=== PATIENT | female | born 1990 | race Caucasian/White ===

== ENCOUNTER 2017-01-22 07:43 | Inpatient (IN) | payer BC ==
[2017-01-22] MEDS ORDERED: Sodium Chloride 0.9% 10 ML Syringe FLUSH PRN (08:16)
[2017-01-22] MEDS ORDERED: ceFAZolin 1 GM Vial IV ONE (08:16)
[2017-01-22] MEDS ORDERED: Misoprostol 200 MCG Tab PO PRN (08:16)
[2017-01-22] MEDS ORDERED: Methylergonovine 0.2 MG/1 ML Amp IM PRN (08:16)
[2017-01-22] MEDS ORDERED: Nalbuphine 10 MG/1 ML Vial IVPUSH PRN (08:16)
[2017-01-22] MEDS ORDERED: Terbutaline 1 MG/ML SDV SUBCUT PRN (08:16)
[2017-01-22] MEDS ORDERED: Water For Irrigation,Sterile 1,000 ML Container IRR PRN (08:16)
[2017-01-22] MEDS ORDERED: Lidocaine 1% 50 ML MDV INJECT PRN (08:16)
[2017-01-22] MEDS ORDERED: Sodium Chloride 0.9% 2.5 ML Syringe FLUSH PRN (08:16)
[2017-01-22] MEDS ORDERED: Carboprost Tromethamine 250 MCG/1 ML Amp IM PRN (08:16)
[2017-01-22] MEDS ORDERED: Oxytocin/Lactated Ringers 30 UNIT/500 ML BAG IV SCH ×2 (08:30)
[2017-01-22] MEDS ORDERED: Misoprostol 25 MCG (1/4 of 100 MCG) Tab VAG SCH (08:30)
[2017-01-22] MEDS ORDERED: ceFAZolin 2 GM in Premix Bag 1 BAG IV ONE (08:45)
[2017-01-22] MEDS: Lactated Ringers 1,000 ML IV SCH (09:06)
[2017-01-22] MEDS: Misoprostol 25 MCG (1/4 of 100 MCG) Tab VAG PRN ×3 (13:55→22:34)
[2017-01-22] MEDS ORDERED: ceFAZolin 1 GM Vial IV SCH (16:30)
[2017-01-22] MEDS: ceFAZolin 1 GM in Premix Bag 1 BAG IV SCH (17:15)
[2017-01-22] MEDS ORDERED: hydrOXYzine Pamoate 25 MG Cap PO ONE (21:35)
[2017-01-23] MEDS ORDERED: cefOXitin 0 ML ONE (01:24)
[2017-01-23] MEDS: ceFAZolin 1 GM in Premix Bag 1 BAG IV SCH ×3 (01:32→17:25)
[2017-01-23] MEDS: Butorphanol 1 MG/ML SDV IVPUSH PRN ×3 (02:13→08:20)
[2017-01-23] MEDS: Lactated Ringers 1,000 ML IV SCH ×4 (09:36→19:50)
[2017-01-23] MEDS ORDERED: Ropivacaine 0.2% 2 MG/ML 20 ML SDV ONE (10:23)
--- NOTE | 2017-01-23 10:59 | PCM.PREANE ---
Preanesthetic Assessment - Anesthesia/Transfusion/Family Hx Anesthesia History: Prior Anesthesia Without Reaction Transfusion History: No Prior Transfusion(s) - Review of Systems Other: Reports: None - Physical Assessment Height: 5 ft 4.25 in Weight: 106.708 kg ASA Class: 2 Mental Status: Alert & Oriented x3 Airway Class: Mallampati = 1 Dentition: Reports: Normal Dentition Thyro-Mental Finger Breadths: 3 Mouth Opening Finger Breadths: 3 ROM/Head Extension: Full - Lab Values: Laboratory Last Values WBC 8.03 K/uL (4.0-11.0) 01/22/17 08:45 RBC 3.79 M/uL (4.30-5.90) L 01/22/17 08:45 Hgb 11.3 g/dL (12.0-16.0) L 01/22/17 08:45 Hct 33.5 % (36.0-46.0) L 01/22/17 08:45 MCV 88.4 fL (80.0-98.0) 01/22/17 08:45 MCH 29.8 pg (27.0-32.0) 01/22/17 08:45 MCHC 33.7 g/dL (31.0-37.0) 01/22/17 08:45 RDW Std Deviation 43.8 fl (28.0-62.0) 01/22/17 08:45 RDW Coeff of Steve 14 % (11.0-15.0) 01/22/17 08:45 Plt Count 182 K/uL (150-400) 01/22/17 08:45 MPV 10.40 fL (7.40-12.00) 01/22/17 08:45 Nucleated RBC % 0.0 /100WBC 01/22/17 08:45 Nucleated RBCs # 0 K/uL 01/22/17 08:45 Blood Type A POSITIVE 01/22/17 09:30 Antibody Screen NEGATIVE 01/22/17 09:30 - Allergies Allergies/Adverse Reactions: Allergies Allergy/AdvReac Type Severity Reaction Status Date / Time Penicillins Allergy Rash Verified 01/22/17 08:15 - Blood Blood Available: Yes Product(s) Available: PRBC - Acknowledgements Anesthesia Type Planned: Epidural Pt an Appropriate Candidate for the Planned Anesthesia: Yes Alternatives and Risks of Anesthesia Discussed w Pt/Guardian: Yes Pt/Guardian Understands and Agrees with Anesthesia Plan: Yes PreAnesthesia Questionnaire Gastrointestinal History: Reports: Other (See Below) Other Gastrointestinal History: 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: - 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 (IN HOUSE) MEDS Current Meds: Current Medications Butorphanol Tartrate (Stadol) 1 mg IVPUSH Q1H PRN PRN Reason: Pain Last Admin: 01/23/17 08:20 Dose: 1 mg Carboprost Tromethamine (Hemabate Ds) 250 mcg IM ASDIRECTED PRN PRN Reason: Post Hemorrhage Lactated Ringer's (Ringers, Lactated) 1,000 mls @ 150 mls/hr IV ASDIRECTED PAOLO Last Admin: 01/23/17 10:43 Dose: 999 mls/hr Oxytocin/Lactated Ringer's (Pitocin In Lr 30 Units/500 Ml) 30 unit in 500 mls @ 2 mls/hr IV TITRATE PAOLO; 2 MUNITS/MIN PRN Reason: Protocol Cefazolin Sodium/Dextrose 1 gm (/ Premix) 50 mls @ 100 mls/hr IV Q8H PAOLO Last Admin: 01/23/17 09:27 Dose: 100 mls/hr Lidocaine HCl (Xylocaine 1%) 50 ml INJECT .ONCE PRN PRN Reason: Laceration repair Methylergonovine Maleate (Methergine) 0.2 mg IM ASDIRECTED PRN PRN Reason: Post Hemorrhage Misoprostol (Cytotec) 200 mcg PO .ONCE PRN PRN Reason: Post Hemorrhage Misoprostol (Cytotec) 25 mcg VAG .ONCE PAOLO Last Admin: 01/22/17 09:06 Dose: 25 mcg Misoprostol (Cytotec) 25 mcg VAG Q4H PRN PRN Reason: Cervical Ripening Stop: 01/23/17 12:17 Last Admin: 01/22/17 22:34 Dose: 25 mcg Sodium Chloride (Saline Flush) 10 ml FLUSH ASDIRECTED PRN PRN Reason: Keep Vein Open Sodium Chloride (Saline Flush) 2.5 ml FLUSH ASDIRECTED PRN PRN Reason: Keep Vein Open Sterile Water (Sterile Water For Irrigation) 1,000 ml IRR ASDIRECTED PRN PRN Reason: delivery Terbutaline Sulfate (Brethine) 0.25 mg SUBCUT ASDIRECTED PRN PRN Reason: Tacysystole Discontinued Medications Cefazolin Sodium (Ancef) 2 gm IV ASDIRECTED ONE Stop: 01/22/17 08:17 Cefazolin Sodium (Ancef) 1 gm IV Q8H PAOLO Hydroxyzine Pamoate (Vistaril) 50 mg PO ONETIME ONE Stop: 01/22/17 21:36 Oxytocin/Lactated Ringer's (Pitocin In Lr 30 Units/500 Ml) 30 unit in 500 mls @ 999 mls/hr IV TITRATE PAOLO; 999 MUNITS/MIN PRN Reason: Protocol Stop: 01/22/17 09:01 Cefazolin Sodium/Dextrose 2 gm (/ Premix) 50 mls @ 100 mls/hr IV ASDIRECTED ONE Stop: 01/22/17 09:14 Last Admin: 01/22/17 09:06 Dose: 100 mls/hr Cefazolin Sodium/Dextrose (Ancef) Confirm Administered Dose 50 mls @ as directed .ROUTE .STK-MED ONE Stop: 01/23/17 01:21 Cefoxitin Sodium (Mefoxin In Dextrose,Iso-Osm 1 Gm/50 Ml) Confirm Administered Dose 50 mls @ as directed .ROUTE .STK-MED ONE Stop: 01/23/17 01:25 Cefazolin Sodium/Dextrose (Ancef) Confirm Administered Dose 50 mls @ as directed .ROUTE .STK-MED ONE Stop: 01/23/17 01:29 Ropivacaine/Fentanyl/NS (Fentanyl 2 Mcg-Ropiv 0.2%-Ns) Confirm Administered Dose 100 mls @ as directed .ROUTE .STK-MED ONE Stop: 01/23/17 10:24 Nalbuphine HCl (Nubain) 10 mg IVPUSH Q1H PRN PRN Reason: Pain (severe 7-10) Stop: 01/22/17 10:17 Ropivacaine (Naropin 0.2%) Confirm Administered Dose 20 ml .ROUTE .STK-MED ONE Stop: 01/23/17 10:24
[2017-01-24] MEDS: ceFAZolin 1 GM in Premix Bag 1 BAG IV SCH (01:15)
[2017-01-24] MEDS ORDERED: Oxytocin/Lactated Ringers 30 UNIT/500 ML BAG IV SCH (02:15)
[2017-01-24] MEDS ORDERED: oxyCODONE 5 MG Tab PO PRN (02:28)
[2017-01-24] MEDS ORDERED: Bisacodyl 10 MG Supp RECTAL PRN (02:28)
[2017-01-24] MEDS ORDERED: Acetaminophen 500 MG Tab PO PRN (02:28)
[2017-01-24] MEDS ORDERED: Lanolin 100% Cream 7 GM Tube TOP PRN (02:28)
[2017-01-24] MEDS ORDERED: Docusate Sodium 100 MG Cap PO PRN (02:28)
[2017-01-24] MEDS ORDERED: Witch Hazel Medicated Pads 40/Jar TOP PRN (02:28)
[2017-01-24] MEDS ORDERED: Benzocaine/Menthol 20%-0.5% Spray 78 GM Cannister TOP PRN (02:28)
[2017-01-24] MEDS: Ibuprofen 800 MG Tab PO PRN ×3 (03:27→23:20)
--- NOTE | 2017-01-24 04:02 | OR ---
SURGEON: Nakia Noyola DATE OF PROCEDURE: 01/24/2017 PRE-DELIVERY HISTORY: This is a 27-year-old G1, P0, presented to Labor and Delivery for elective induction of labor at 39 weeks and 6 days. The patient was noted to be GBS positive and allergic to penicillin for which the patient gets a rash. On admission, heart tracing was significant for category 1 status and reactive. The patient had a very occasional contraction. Cervix was very unfavorable and noted to be 1, thick, and high posterior. The patient was given several doses of vaginal misoprostol. The patient was noted to be arin regularly with vaginal misoprostol and her last dose was held. The patient eventually underwent spontaneous rupture of membranes and was examined by me and found to be 2 cm dilated, and a [employer] catheter balloon was used in order to mechanically dilate the cervix with contractions being regular and uncomfortable for the patient. The patient eventually did receive an epidural. Of note, amniotic fluid was noted to be clear. Once she did receive her epidural, the patient was examined by nursing staff and traction was placed on the Cook balloon and balloon was dislodged. The patient was examined by nursing staff and found what was felt to be 6-7 cm dilated. The patient was arin every 5-6 minutes. The patient was started on IV Pitocin. The patient slowly progressed through labor and eventually reached complete status and the patient eventually started maternal expulsive efforts after feeling significant rectal pressure. After a little over an hour's time, the patient went on to deliver a viable female . PREOPERATIVE DIAGNOSES: 1. Intrauterine uterine at 40 weeks and 1 day. 2. GBS positive with multiple doses of IV Ancef. 3. Elective induction of labor. POSTOPERATIVE DIAGNOSES: 1. Intrauterine uterine at 40 weeks and 1 day. 2. GBS positive with multiple doses of IV Ancef. 3. Elective induction of labor. 4. Delivered status. 5. First-degree vaginal laceration. 6. A small left vaginal laceration. PROCEDURE PERFORMED: 1. Spontaneous-assisted vaginal delivery. 2. Repair of first-degree vaginal laceration. 3. Repair of small left vaginal laceration. ANESTHESIA: Epidural and local. ESTIMATED BLOOD LOSS: 300 mL. FINDINGS: Viable female in vertex presentation with scores of 8 and 9 at one and five minutes respectively. Weight of 3730 g. Normal intact placenta with 3 - vessel cord. Small first-degree vaginal laceration. Small left vaginal laceration with extension into the left labia minora. COMPLICATIONS: None known. DISPOSITION: Mom and tolerated the procedure well. DESCRIPTION OF PROCEDURE: This female under epidural anesthesia delivered a viable female infant, with scores of 8 and 9 at one and five minutes respectively and weight of 3730 g. Delivery was via spontaneous-assisted vaginal delivery with infant in vertex presentation. Upon delivery of infant vertex, the neck was checked. There was no nuchal to be reduced and with gentle downward traction, the anterior shoulder area did not deliver spontaneously. So, the shoulders were rotated to 180 degrees and the anterior shoulder was delivered followed by the body. The was bulb suctioned at delivery and eventually placed on mom's abdomen at maternal request. Cord was eventually clamped and cut after completion of pulsation. Cord blood was then collected and sent for analysis. After delivery of the , IV Pitocin was given as an uterotonic to prevent excessive maternal blood loss and help expel the placenta and active management of the third stage of labor. With signs of placental separation, the patient underwent fundal massage and traction on the umbilical cord and a normal intact placenta with 3-vessel cord was delivered. After delivery of the and placenta, the vagina, perineum, and rectum were explored and the patient had a first-degree vaginal laceration and also a small left vaginal laceration extending to the left labia minora, which . Perineum was tested and was noted that the patient did have full sensation, so 1% lidocaine without epinephrine was used to infiltrate the vaginal tissue and also the vaginal sidewall tissue. The first-degree vaginal laceration was reapproximated with 3-0 Vicryl suture in a [id number] fashion. The left vaginal laceration with extension to the labia minora was reapproximated with 3- 0 Vicryl suture. The vagina was actually reapproximated with 3-0 Vicryl suture in a figure-of-8 fashion. Afterwards, the lower uterine segment and vagina were cleared of all clots and debris. The patient was cleansed. Pads were changed and the bed was returned to functioning status. Sponge, lap, needle, and instrument counts were correct. Mom and tolerated the procedure well. There were no known complications. NEWTYOL / MODL /[id number] MTDD
--- NOTE | 2017-01-24 09:18 | PCM48HPAN ---
Post Anesthesia Note - EVALUATION WITHIN 48HRS OF ANESTHETIC Vital Signs in Normal Range: Yes Patient Participated in Evaluation: Yes Respiratory Function Stable: Yes Airway Patent: Yes Cardiovascular Function Stable: Yes Hydration Status Stable: Yes Pain Control Satisfactory: Yes Nausea and Vomiting Control Satisfactory: Yes Mental Status Recovered: Yes
[2017-01-25] MEDS: Ibuprofen 800 MG Tab PO PRN (09:10)
--- NOTE | 2017-01-25 09:16 | PCM.PNPP ---
- General Info Date of Service: 01/25/17 Functional Status: Reports: Pain Controlled, Tolerating Diet, Ambulating, Urinating - Review of Systems General: Reports: No Symptoms HEENT: Reports: No Symptoms Pulmonary: Reports: No Symptoms Cardiovascular: Reports: No Symptoms Gastrointestinal: Reports: No Symptoms Genitourinary: Reports: No Symptoms Musculoskeletal: Reports: No Symptoms Skin: Reports: No Symptoms Neurological: Reports: No Symptoms Psychiatric: Reports: No Symptoms - General Info Date of Service: 01/25/17 - Patient Data Vital Signs - Most Recent: Last Vital Signs Temp 36.6 C 01/24/17 19:39 Pulse 54 L 01/24/17 19:39 Resp 16 01/24/17 19:39 BP 135/73 01/24/17 19:39 Pulse Ox 97 01/24/17 19:39 Weight - Most Recent: 106.708 kg Lab Results - Last 24 Hours: Laboratory Results - last 24 hr 01/25/17 Range/Units 05:22 Hgb 10.3 L (12.0-16.0) g/dL Hct 30.9 L (36.0-46.0) % Med Orders - Current: Current Medications Acetaminophen (Tylenol Extra Strength) 500 mg PO Q4H PRN PRN Reason: Pain Benzocaine/Menthol (Dermoplast Pain Relief 20%-0.5% [place]) 78 gm TOP ASDIRECTED PRN PRN Reason: Perineal Comfort Measure Last Admin: 01/24/17 03:29 Dose: 1 spray Bisacodyl (Dulcolax) 10 mg RECTAL .ONCE PRN PRN Reason: Constipation Butorphanol Tartrate (Stadol) 1 mg IVPUSH Q1H PRN PRN Reason: Pain Last Admin: 01/23/17 08:20 Dose: 1 mg Carboprost Tromethamine (Hemabate Ds) 250 mcg IM ASDIRECTED PRN PRN Reason: Post Hemorrhage Docusate Sodium (Colace) 100 mg PO BID PRN PRN Reason: Constipation Last Admin: 01/24/17 10:11 Dose: 100 mg Emollient Ointment (Lansinoh Hpa) 0 gm TOP ASDIRECTED PRN PRN Reason: Sore Nipples Lactated Ringer's (Ringers, Lactated) 1,000 mls @ 150 mls/hr IV ASDIRECTED PAOLO Last Admin: 01/23/17 19:50 Dose: 150 mls/hr Oxytocin/Lactated Ringer's (Pitocin In Lr 30 Units/500 Ml) 30 unit in 500 mls @ 2 mls/hr IV TITRATE PAOLO; 2 MUNITS/MIN PRN Reason: Protocol Last Titration: 01/24/17 01:40 Dose: 500 munits/min, 500 mls/hr Cefazolin Sodium/Dextrose 1 gm (/ Premix) 50 mls @ 100 mls/hr IV Q8H PAOLO Last Admin: 01/24/17 01:15 Dose: 100 mls/hr Oxytocin/Lactated Ringer's (Pitocin In Lr 30 Units/500 Ml) 30 unit in 500 mls @ 250 mls/hr IV ASDIRECTED PAOLO PRN Reason: 250 MUNITS/MIN Ibuprofen (Motrin) 800 mg PO Q6H PRN PRN Reason: Pain Last Admin: 01/25/17 09:10 Dose: 800 mg Lidocaine HCl (Xylocaine 1%) 50 ml INJECT .ONCE PRN PRN Reason: Laceration repair Last Admin: 01/24/17 01:50 Dose: 50 ml Methylergonovine Maleate (Methergine) 0.2 mg IM ASDIRECTED PRN PRN Reason: Post Hemorrhage Misoprostol (Cytotec) 200 mcg PO .ONCE PRN PRN Reason: Post Hemorrhage Misoprostol (Cytotec) 25 mcg VAG .ONCE PAOLO Last Admin: 01/22/17 09:06 Dose: 25 mcg Oxycodone HCl (Oxycodone) 5 mg PO Q2H PRN PRN Reason: Pain Last Admin: 01/25/17 09:11 Dose: 5 mg Sodium Chloride (Saline Flush) 10 ml FLUSH ASDIRECTED PRN PRN Reason: Keep Vein Open Sodium Chloride (Saline Flush) 2.5 ml FLUSH ASDIRECTED PRN PRN Reason: Keep Vein Open Sterile Water (Sterile Water For Irrigation) 1,000 ml IRR ASDIRECTED PRN PRN Reason: delivery Last Admin: 01/24/17 02:00 Dose: 1,000 ml Terbutaline Sulfate (Brethine) 0.25 mg SUBCUT ASDIRECTED PRN PRN Reason: Tacysystole [place]is (Tucks) 1 pad TOP ASDIRECTED PRN PRN Reason: comfort care Last Admin: 01/24/17 03:30 Dose: 1 applic Discontinued Medications Cefazolin Sodium (Ancef) 2 gm IV ASDIRECTED ONE Stop: 01/22/17 08:17 Cefazolin Sodium (Ancef) 1 gm IV Q8H PAOLO Hydroxyzine Pamoate (Vistaril) 50 mg PO ONETIME ONE Stop: 01/22/17 21:36 Oxytocin/Lactated Ringer's (Pitocin In Lr 30 Units/500 Ml) 30 unit in 500 mls @ 999 mls/hr IV TITRATE PAOLO; 999 MUNITS/MIN PRN Reason: Protocol Stop: 01/22/17 09:01 Cefazolin Sodium/Dextrose 2 gm (/ Premix) 50 mls @ 100 mls/hr IV ASDIRECTED ONE Stop: 01/22/17 09:14 Last Admin: 01/22/17 09:06 Dose: 100 mls/hr Cefazolin Sodium/Dextrose (Ancef) Confirm Administered Dose 50 mls @ as directed .ROUTE .ST-MED ONE Stop: 01/23/17 01:21 Cefoxitin Sodium (Mefoxin In Dextrose,Iso-Osm 1 Gm/50 Ml) Confirm Administered Dose 50 mls @ as directed .ROUTE .STK-MED ONE Stop: 01/23/17 01:25 Cefazolin Sodium/Dextrose (Ancef) Confirm Administered Dose 50 mls @ as directed .ROUTE .STK-MED ONE Stop: 01/23/17 01:29 Ropivacaine/Fentanyl/NS (Fentanyl 2 Mcg-Ropiv 0.2%-Ns) Confirm Administered Dose 100 mls @ as directed .ROUTE .STK-MED ONE Stop: 01/23/17 10:24 Ropivacaine/Fentanyl/NS (Fentanyl 2 Mcg-Ropiv 0.2%-Ns) Confirm Administered Dose 100 mls @ as directed .ROUTE .STK-MED ONE Stop: 01/23/17 18:41 Misoprostol (Cytotec) 25 mcg VAG Q4H PRN PRN Reason: Cervical Ripening Stop: 01/23/17 12:17 Last Admin: 01/22/17 22:34 Dose: 25 mcg Nalbuphine HCl (Nubain) 10 mg IVPUSH Q1H PRN PRN Reason: Pain (severe 7-10) Stop: 01/22/17 10:17 Ropivacaine (Naropin 0.2%) Confirm Administered Dose 20 ml .ROUTE .[employer]-MED ONE Stop: 01/23/17 10:24 - Infant Interaction Infant Disposition, : [place] in Room with Family Infant Interaction: Holding Infant Feeding: Breastfed ; Nursed Well Support Person: Significant Other - Recovery Exam Fundal Tone: Firm Fundal Level: At Umbilicus Fundal Placement: Midline Lochia Amount: Small Lochia Color: Rubra/Red Perineum Description: Intact, Minimal Bruising/Swelling Episiotomy/Laceration: Approximated Bladder Status: Voiding Urinary Elimination: Voided - Exam General: Alert, Oriented Neck: Supple Lungs: Clear to Auscultation, Normal Respiratory Effort Cardiovascular: Regular Rate, Regular Rhythm GI/Abdominal Exam: Normal Bowel Sounds, Soft, Non-Tender Extremities: Normal Inspection Skin: Warm, Dry, Intact Neurological: No New Focal Deficit Psy/Mental Status: Alert, Normal Affect, Normal Mood - Problem List & Annotations (1) Vaginal delivery SNOMED Code(s): 814461322 Code(s): O80 - ENCOUNTER FOR FULL-TERM UNCOMPLICATED DELIVERY Status: Acute Current Visit: Yes - Problem List Review Problem List Initiated/Reviewed/Updated: Yes - My Orders Last 24 Hours: My Active Orders 01/25/17 10:00 Ready for Discharge [RC] PER UNIT ROUTINE - Assessment Assessment:: PPD#1 S/p SAVD Doing well Desires discharge home today - Plan Plan:: Discharge home today with follow up in 6wks Pelvic rest for 6wks Bleeding precautions given Infection precautions given Thrombotic precautions given blues/precautions given
[2017-01-25 10:53] VITALS: BP 130/77
== END 2017-01-25 13:39 | disposition home or self-care (01) | DRG 560 ==
LOC: MW.OBCHECK 07:43 → MW.OB 07:44 → OBSVTOIN 01-24 01:35 → MW.OB 01-24 08:40
PROVIDERS: ADMIT Obstetrics & Gynecology; ATTEND Obstetrics & Gynecology
PROC: 10E0XZZ Delivery of Products of Conception, External Approach (ICD-10-PCS; principal; 2017-01-24)
PROC: 0HQ9XZZ Repair Perineum Skin, External Approach (ICD-10-PCS; 2017-01-24)
PROC: 0U7C7ZZ Dilation of Cervix, Via Natural or Artificial Opening (ICD-10-PCS; 2017-01-24)
DX: O70.0 First degree perineal laceration during delivery (principal); O99.824 Streptococcus B carrier state complicating childbirth; Z3A.40 40 weeks gestation of pregnancy; Z37.0 Single live birth; Z88.0 Allergy status to penicillin
CPT/HCPCS: 36415; 59025; 85014; 85018; 85027; 86850; 86900; 86901; A9270-GY; J0595; J0690; J7120

== ENCOUNTER 2019-04-26 00:05 | Inpatient (IN) | payer OTHER ==
[2019-04-26] MEDS ORDERED: Misoprostol 25 MCG (1/4 of 100 MCG) Tab VAG PRN ×2 (00:38)
[2019-04-26] MEDS ORDERED: Water For Irrigation,Sterile 1,000 ML Container IRR PRN (00:38)
[2019-04-26] MEDS ORDERED: Tranexamic Acid 1,000 MG in Sodium Chloride 0.9% 100 ML IV PRN (00:38)
[2019-04-26] MEDS ORDERED: Lidocaine 1% 50 ML MDV INJECT PRN (00:38)
[2019-04-26] MEDS ORDERED: Ondansetron 4 MG/2 ML SDV IVPUSH PRN (00:38)
[2019-04-26] MEDS ORDERED: Carboprost Tromethamine 250 MCG/1 ML Amp IM PRN (00:38)
[2019-04-26] MEDS ORDERED: Methylergonovine 0.2 MG/1 ML Amp IM PRN ×2 (00:38→10:52)
[2019-04-26] MEDS ORDERED: Terbutaline 1 MG/ML SDV SUBCUT PRN (00:38)
[2019-04-26] MEDS ORDERED: Butorphanol 1 MG/ML SDV IVPUSH PRN (00:38)
[2019-04-26] MEDS ORDERED: Misoprostol 200 MCG Tab PO PRN (00:38)
[2019-04-26] MEDS ORDERED: Sodium Chloride 0.9% 10 ML Syringe FLUSH PRN (00:38)
[2019-04-26] MEDS ORDERED: Nalbuphine 10 MG/1 ML Vial IVPUSH PRN (00:38)
[2019-04-26] MEDS ORDERED: Sodium Chloride 0.9% 10 ML SDV IV PRN (00:38)
[2019-04-26] MEDS ORDERED: Oxytocin/0.9 % Sodium Chloride 30 UNIT/500 ML BAG IV SCH ×2 (00:45)
[2019-04-26] MEDS: Lactated Ringers 1,000 ML IV SCH ×3 (01:05→08:45)
[2019-04-26] MEDS ORDERED: fentaNYL 100 MCG/2 ML SDV ONE (08:54)
[2019-04-26] MEDS ORDERED: Bisacodyl 10 MG Supp RECTAL PRN (10:52)
[2019-04-26] MEDS ORDERED: Benzocaine/Menthol 20%-0.5% Spray 78 GM Cannister TOP PRN (10:52)
[2019-04-26] MEDS ORDERED: Lanolin 100% Cream 7 GM Tube TOP PRN (10:52)
[2019-04-26] MEDS ORDERED: Acetaminophen 500 MG Tab PO PRN ×2 (10:52)
[2019-04-26] MEDS ORDERED: oxyCODONE 5 MG Tab PO PRN (10:52)
[2019-04-26] MEDS ORDERED: Witch Hazel Medicated Pads 40/Jar TOP PRN (10:52)
[2019-04-26] MEDS ORDERED: Ibuprofen 400 MG Tab PO PRN (10:52)
[2019-04-26] MEDS ORDERED: Docusate Sodium 100 MG Cap PO PRN (10:52)
--- NOTE | 2019-04-26 11:17 | PCM.DEL ---
<Lynda Gee E - Last Filed: 04/26/19 11:22> L & D Note - General Info Date of Service: 04/26/19 Mother's Due Date: 05/03/19 - Delivery Note Labor: Induced by Oxytocin Cervical Ripening Method: Misoprostil Delivery Outcome: Livebirth Infant Delivery Method: Spontaneous Vaginal Delivery-Single Delivery Mode: Spontaneous Presentation: Left Occiput Anterior (ANIL) Nuchal Cord: None Anesthesia Type: Combined Spinal Epidural Anesthetic: Other (Fentanyl/Bupivacaine (0.125%)) Amniotic Fluid Description: Clear Episiotomy Type: None Laceration: None Placenta: Intact, Spontaneous Cord: 3 Vessels Estimated Blood Loss: 300 Resuscitation Needed: No [place]: Suctioned, Bulb Syringe, Stimulated, Warmed, [place] Used, Warmer Used Provider: Trisha Chambers Score 1 min: 8 Score 5 min: 9 Post Delivery Events: Shoulder Dystocia (reduced appropriately) Second Stage Interventions: Reports: Encouragement Given, Pushing Effectively, Pushing, Stirrups/Leg Supports Delivery Comments (Free Text/Narrative):: Live female born, Sade, at 1033; apgars 8/9; weight pending - General Info Date of Service: 04/26/19 - Patient Data Weight - Most Recent: 108.862 kg Lab Results Last 24 Hours: Laboratory Results - last 24 hr 04/26/19 04/26/19 04/26/19 Range/Units 01:18 01:18 10:33 WBC 10.10 (4.0-11.0) K/uL RBC 3.90 L (4.30-5.90) M/uL Hgb 12.0 (12.0-16.0) g/dL Hct 35.2 L (36.0-46.0) % MCV 90.3 (80.0-98.0) fL MCH 30.8 (27.0-32.0) pg MCHC 34.1 (31.0-37.0) g/dL RDW Std Deviation 43.7 (28.0-62.0) fl RDW Coeff of Steve 14 (11.0-15.0) % Plt Count 201 (150-400) K/uL MPV 9.70 (7.40-12.00) fL Cord ABG pH 7.212 (7.18-7.38) Cord ABG Base Excess -7 (-10--2) Cord VBG pH 7.358 (7.25-7.45) Cord VBG Base Excess -5 (-10--2) Blood Type A POSITIVE Antibody Screen NEGATIVE Med Orders - Current: Current Medications Acetaminophen (Tylenol Extra Strength) 500 mg PO Q4H PRN PRN Reason: Pain Acetaminophen (Tylenol Extra Strength) 1,000 mg PO Q4H PRN PRN Reason: Pain Benzocaine/Menthol (Dermoplast Pain Relief 20%-0.5% [place]) 78 gm TOP ASDIRECTED PRN PRN Reason: Perineal Comfort Measure Bisacodyl (Dulcolax) 10 mg RECTAL ONETIME PRN PRN Reason: Constipation Docusate Sodium (Colace) 100 mg PO BID PRN PRN Reason: Constipation Emollient Ointment (Lansinoh Hpa) 0 gm TOP ASDIRECTED PRN PRN Reason: Sore Nipples Ibuprofen (Motrin) 400 mg PO Q4H PRN PRN Reason: Pain Ibuprofen (Motrin) 800 mg PO Q6H PRN PRN Reason: Pain Methylergonovine Maleate (Methergine) 0.2 mg IM ONETIME PRN PRN Reason: Excessive Vaginal Bleeding Oxycodone HCl (Oxycodone) 5 mg PO Q2H PRN PRN Reason: Pain Witch Belkis (Tucks) 1 pad TOP ASDIRECTED PRN PRN Reason: comfort care Discontinued Medications Butorphanol Tartrate (Stadol) 1 mg IVPUSH ASDIRECTED PRN PRN Reason: Pain Carboprost Tromethamine (Hemabate Ds) 250 mcg IM ASDIRECTED PRN PRN Reason: Post Hemorrhage Fentanyl (Sublimaze) Confirm Administered Dose 100 mcg .ROUTE .STK-MED ONE Stop: 04/26/19 08:55 Lactated Ringer's (Ringers, Lactated) 1,000 mls @ 150 mls/hr IV ASDIRECTED [facility] Last Admin: 04/26/19 08:45 Dose: 125 mls/hr Oxytocin/Sodium Chloride (Oxytocin 30 Unit/500 Ml-Ns) 30 unit in 500 mls @ 999 mls/hr IV TITRATE [facility] Oxytocin/Sodium Chloride (Oxytocin 30 Unit/500 Ml-Ns) 30 unit in 500 mls @ 2 mls/hr IV TITRATE [facility]; Protocol Last Titration: 04/26/19 09:15 Dose: 8 munits/min, 8 mls/hr Tranexamic Acid 1,000 mg/ (Sodium Chloride) 110 mls @ 660 mls/hr IV ONETIME PRN PRN Reason: Bleeding Fentanyl/Bupivacaine HCl (Ukpzzgpb-Wyfpc-Gz 2 Mcg/Ml-0.125%) Confirm Administered Dose 100 mls @ as directed .ROUTE .STK-MED ONE Stop: 04/26/19 08:56 Lidocaine HCl (Xylocaine 1%) 50 ml INJECT ONETIME PRN PRN Reason: Laceration repair Methylergonovine Maleate (Methergine) 0.2 mg IM ASDIRECTED PRN PRN Reason: Post Hemorrhage Misoprostol (Cytotec) 200 mcg PO ONETIME PRN PRN Reason: Post Hemorrhage Misoprostol (Cytotec) 25 mcg VAG ONETIME PRN PRN Reason: Cervical Ripening Last Admin: 04/26/19 01:23 Dose: 25 mcg Misoprostol (Cytotec) 25 mcg VAG Q4H PRN PRN Reason: Cervical Ripening Nalbuphine HCl (Nubain) 10 mg IVPUSH ASDIRECTED PRN PRN Reason: Pain (severe 7-10) Ondansetron HCl (Zofran) 4 mg IVPUSH Q6H PRN PRN Reason: Nausea/Vomiting Sodium Chloride (Saline Flush) 10 ml FLUSH ASDIRECTED PRN PRN Reason: Keep Vein Open Sodium Chloride (Normal Saline) 10 ml IV ASDIRECTED PRN PRN Reason: IV Use Sterile Water (Sterile Water For Irrigation) 1,000 ml IRR ASDIRECTED PRN PRN Reason: delivery Terbutaline Sulfate (Brethine) 0.25 mg SUBCUT ASDIRECTED PRN PRN Reason: Tacysystole - Problem List & Annotations (1) Vaginal delivery SNOMED Code(s): 554381895 Code(s): O80 - ENCOUNTER FOR FULL-TERM UNCOMPLICATED DELIVERY Status: Resolved Current Visit: Yes - Problem List Review Problem List Initiated/Reviewed/Updated: Yes <Trisha Chambers - Last Filed: 04/27/19 09:05> - Patient Data Vitals - Most Recent: Last Vital Signs Temp 36.5 C 04/27/19 07:34 Pulse 80 04/27/19 07:34 Resp 20 04/27/19 07:34 BP 114/73 04/27/19 07:34 Pulse Ox 96 04/27/19 07:34 Lab Results Last 24 Hours: Laboratory Results - last 24 hr 04/26/19 04/27/19 Range/Units 10:33 06:50 Hgb 11.8 L (12.0-16.0) g/dL Hct 35.1 L (36.0-46.0) % Cord ABG pH 7.212 (7.18-7.38) Cord ABG Base Excess -7 (-10--2) Cord VBG pH 7.358 (7.25-7.45) Cord VBG Base Excess -5 (-10--2) Med Orders - Current: Current Medications Acetaminophen (Tylenol Extra Strength) 500 mg PO Q4H PRN PRN Reason: Pain Acetaminophen (Tylenol Extra Strength) 1,000 mg PO Q4H PRN PRN Reason: Pain Last Admin: 04/27/19 00:09 Dose: 1,000 mg Benzocaine/Menthol (Dermoplast Pain Relief 20%-0.5% [place]) 78 gm TOP ASDIRECTED PRN PRN Reason: Perineal Comfort Measure Bisacodyl (Dulcolax) 10 mg RECTAL ONETIME PRN PRN Reason: Constipation Docusate Sodium (Colace) 100 mg PO BID PRN PRN Reason: Constipation Last Admin: 04/26/19 21:06 Dose: 100 mg Emollient Ointment (Lansinoh Hpa) 0 gm TOP ASDIRECTED PRN PRN Reason: Sore Nipples Ibuprofen (Motrin) 400 mg PO Q4H PRN PRN Reason: Pain Ibuprofen (Motrin) 800 mg PO Q6H PRN PRN Reason: Pain Last Admin: 04/27/19 07:35 Dose: 800 mg Methylergonovine Maleate (Methergine) 0.2 mg IM ONETIME PRN PRN Reason: Excessive Vaginal Bleeding Oxycodone HCl (Oxycodone) 5 mg PO Q2H PRN PRN Reason: Pain Witch Belkis (Tucks) 1 pad TOP ASDIRECTED PRN PRN Reason: comfort care Discontinued Medications Butorphanol Tartrate (Stadol) 1 mg IVPUSH ASDIRECTED PRN PRN Reason: Pain Carboprost Tromethamine (Hemabate Ds) 250 mcg IM ASDIRECTED PRN PRN Reason: Post Hemorrhage Fentanyl (Sublimaze) Confirm Administered Dose 100 mcg .ROUTE .[employer] ONE Stop: 04/26/19 08:55 Last Admin: 04/26/19 17:38 Dose: Not Given Lactated Ringer's (Ringers, Lactated) 1,000 mls @ 150 mls/hr IV ASDIRECTED [facility] Last Admin: 04/26/19 08:45 Dose: 125 mls/hr Oxytocin/Sodium Chloride (Oxytocin 30 Unit/500 Ml-Ns) 30 unit in 500 mls @ 999 mls/hr IV TITRATE [facility] Oxytocin/Sodium Chloride (Oxytocin 30 Unit/500 Ml-Ns) 30 unit in 500 mls @ 2 mls/hr IV TITRATE [facility]; Protocol Last Titration: 04/26/19 09:15 Dose: 8 munits/min, 8 mls/hr Tranexamic Acid 1,000 mg/ (Sodium Chloride) 110 mls @ 660 mls/hr IV ONETIME PRN PRN Reason: Bleeding Fentanyl/Bupivacaine HCl (Elbhnzsw-Wagpa-Tn 2 Mcg/Ml-0.125%) Confirm Administered Dose 100 mls @ as directed .ROUTE [email or web address] ONE Stop: 04/26/19 08:56 Last Admin: 04/26/19 17:39 Dose: Not Given Lidocaine HCl (Xylocaine 1%) 50 ml INJECT ONETIME PRN PRN Reason: Laceration repair Methylergonovine Maleate (Methergine) 0.2 mg IM ASDIRECTED PRN PRN Reason: Post Hemorrhage Misoprostol (Cytotec) 200 mcg PO ONETIME PRN PRN Reason: Post Hemorrhage Misoprostol (Cytotec) 25 mcg VAG ONETIME PRN PRN Reason: Cervical Ripening Last Admin: 04/26/19 01:23 Dose: 25 mcg Misoprostol (Cytotec) 25 mcg VAG Q4H PRN PRN Reason: Cervical Ripening Nalbuphine HCl (Nubain) 10 mg IVPUSH ASDIRECTED PRN PRN Reason: Pain (severe 7-10) Ondansetron HCl (Zofran) 4 mg IVPUSH Q6H PRN PRN Reason: Nausea/Vomiting Sodium Chloride (Saline Flush) 10 ml FLUSH ASDIRECTED PRN PRN Reason: Keep Vein Open Sodium Chloride (Normal Saline) 10 ml IV ASDIRECTED PRN PRN Reason: IV Use Sterile Water (Sterile Water For Irrigation) 1,000 ml IRR ASDIRECTED PRN PRN Reason: delivery Terbutaline Sulfate (Brethine) 0.25 mg SUBCUT ASDIRECTED PRN PRN Reason: Tacysystole - Problem List Review Problem List Initiated/Reviewed/Updated: Yes - My Orders Last 24 Hours: My Active Orders 04/26/19 10:52 Acetaminophen [Tylenol Extra Strength] 1,000 mg PO Q4H PRN Acetaminophen [Tylenol Extra Strength] 500 mg PO Q4H PRN Benzocaine/Menthol [Dermoplast Pain Relief 20%-0.5% [place]] 78 gm TOP ASDIRECTED PRN Bisacodyl [Dulcolax] 10 mg RECTAL ONETIME PRN Docusate Sodium [Colace] 100 mg PO BID PRN Ibuprofen [Motrin] 400 mg PO Q4H PRN Ibuprofen [Motrin] 800 mg PO Q6H PRN Lanolin [Lansinoh HPA] See Dose Instructions TOP ASDIRECTED PRN Methylergonovine [Methergine] 0.2 mg IM ONETIME PRN Witch Belkis [Tucks] 1 pad TOP ASDIRECTED PRN oxyCODONE 5 mg PO Q2H PRN Resuscitation Status Routine 04/26/19 10:53 Patient Status [ADT] Routine May Shower [RC] ASDIRECTED Up ad Leda [RC] ASDIRECTED Vital Signs [RC] PER UNIT ROUTINE Assess Lochia [WOMSER] Per Unit Routine Assess Uterine Involution [WOMSER] Per Unit Routine Perineal Care [OM.PC] Per Unit Routine Peripheral IV Discontinue [OM.PC] Routine 04/26/19 Lunch Regular Diet [DIET] 04/27/19 08:55 Ready for Discharge [RC] PER UNIT ROUTINE - Assessment Assessment:: patient was seen and examined by me and I agree with above. Discharge instructions reviewed with patient.
--- NOTE | 2019-04-26 11:28 | OR ---
SURGEON: Trisha Chambers M.D. DATE OF PROCEDURE: 04/26/2019 PREOPERATIVE DIAGNOSES: A 39-6/7 weeks' intrauterine , suspected macrosomia. POSTOPERATIVE DIAGNOSES: A 39-6/7 weeks' intrauterine , suspected macrosomia. PROCEDURES: Cytotec and Pitocin induction, artificial rupture of membranes, term spontaneous vaginal delivery. PRIMARY SURGEON: Trisha Chambers MD. EAR MACHINE OPERATOR: MIGUEL Morales. ANESTHESIA: Epidural. ESTIMATED BLOOD LOSS: Less than 400 mL. FINDINGS: Live-born female. scores 8 and 9. Weight is pending at the time of dictation. Placenta spontaneous, Schultze intact, with 3 vessels. Perineum intact. BRIEF HISTORY: This is a 29-year-old female, G2, P 1-0-0-1, at 39-6/7 weeks' gestation. Ultrasound showed estimated weight of 3912 g. The patient desired induction of labor to avoid further growth and therefore presents for induction of labor. She received Cytotec followed by Pitocin. She was admitted at midnight. By 8 a.m., she was 4 cm dilated. Artificial rupture of membranes was performed, clear fluid noted. She received an epidural for pain control. She had category 1 heart tones throughout labor. She progressed to complete. DESCRIPTION OF PROCEDURE: With the patient in dorsal lithotomy position, she pushed over a 10-minute time period to a 5+ station at which time the head was delivered spontaneously and atraumatically over the perineum with support with subsequent delivery of the 's shoulders utilizing Reva maneuver and slight anterior rotation of the shoulder. However, there was no shoulder dystocia. The remainder of the 's body was delivered without any difficulty. The infant was bulb suctioned by nose and mouth. The cord, after it had ceased to pulsate, was doubly clamped and cut, and the infant was handed to the mother in the presence of nurse attending delivery. The infant was a liveborn female. scores 8 and 9. Weight is pending at the time of dictation. Cord blood was collected for cord ABGs as well as routine cord blood sampling. Pitocin was initiated after delivery of the infant to assist with delivery of the placenta which was delivered spontaneously, Schultze intact, with 3 vessels. Upon inspection of the pelvis and perineum, there was no periurethral, vaginal sidewall, cervical, or rectal laceration. There was an abrasion of the left labia which was hemostatic. Final sponge, needle, and instrument counts were correct. There were no known complications. Mother and baby are in LDR in good condition. BENOIT CALDERA /[id number]
--- NOTE | 2019-04-26 12:59 | PCM.PREANE ---
Preanesthetic Assessment - Anesthesia/Transfusion/Family Hx Anesthesia History: Prior Anesthesia Without Reaction Family History of Anesthesia Reaction: No Transfusion History: No Prior Transfusion(s) Intubation History: Unknown - Review of Systems General: No Symptoms Pulmonary: No Symptoms Cardiovascular: No Symptoms Gastrointestinal: No Symptoms Neurological: No Symptoms Other: Reports: None - Physical Assessment Height: 5 ft 5 in Weight: 108.862 kg ASA Class: 2 Mental Status: Alert & Oriented x3 Airway Class: Mallampati = 2 Dentition: Reports: Normal Dentition Thyro-Mental Finger Breadths: 3 Mouth Opening Finger Breadths: 3 ROM/Head Extension: Full Lungs: Clear to Auscultation, Normal Respiratory Effort Cardiovascular: Regular Rate, Regular Rhythm - Lab Values: Laboratory Last Values WBC 10.10 K/uL (4.0-11.0) 04/26/19 01:18 RBC 3.90 M/uL (4.30-5.90) L 04/26/19 01:18 Hgb 12.0 g/dL (12.0-16.0) 04/26/19 01:18 Hct 35.2 % (36.0-46.0) L 04/26/19 01:18 MCV 90.3 fL (80.0-98.0) 04/26/19 01:18 MCH 30.8 pg (27.0-32.0) 04/26/19 01:18 MCHC 34.1 g/dL (31.0-37.0) 04/26/19 01:18 RDW Std Deviation 43.7 fl (28.0-62.0) 04/26/19 01:18 RDW Coeff of Steve 14 % (11.0-15.0) 04/26/19 01:18 Plt Count 201 K/uL (150-400) 04/26/19 01:18 MPV 9.70 fL (7.40-12.00) 04/26/19 01:18 Cord ABG pH 7.212 (7.18-7.38) 04/26/19 10:33 Cord ABG Base Excess -7 (-10--2) 04/26/19 10:33 Cord VBG pH 7.358 (7.25-7.45) 04/26/19 10:33 Cord VBG Base Excess -5 (-10--2) 04/26/19 10:33 Blood Type A POSITIVE 04/26/19 01:18 Antibody Screen NEGATIVE 04/26/19 01:18 - Allergies Allergies/Adverse Reactions: Allergies Allergy/AdvReac Type Severity Reaction Status Date / Time Penicillins Allergy Rash Verified 04/26/19 00:37 - Blood Blood Available: No - Anesthesia Plan Pre-Op Medication Ordered: None - Acknowledgements Anesthesia Type Planned: Epidural Pt an Appropriate Candidate for the Planned Anesthesia: Yes Alternatives and Risks of Anesthesia Discussed w Pt/Guardian: Yes Pt/Guardian Understands and Agrees with Anesthesia Plan: Yes PreAnesthesia Questionnaire Gastrointestinal History: Reports: Other (See Below) Other Gastrointestinal History: heartburn during EYELETTER History: Reports: Endocrine/Metabolic History: Reports: Obesity/BMI 30+ Dermatologic History: Reports: Other (See Below) Other Dermatologic History: moles - Infectious Disease History Infectious Disease History: Reports: Chicken Pox - Past Surgical History GI Surgical History: Reports: None Endocrine Surgical History: Reports: None Dermatological Surgical History: Reports: None - SUBSTANCE USE Smoking Status *Q: Never Smoker Second Hand Smoke Exposure: No Recreational Drug Use History: No - HOME MEDS Home Medications: Home Meds Calcium Carbonate [Tums Extra Strength] 750 mg PO PRN 04/26/19 [History] Potassium 99 mg PO BID 04/26/19 [History] Vits #93/Iron Fum/FA [ Formula Tablet] 1 each PO DAILY [History] - CURRENT (IN HOUSE) MEDS Current Meds: Current Medications Acetaminophen (Tylenol Extra Strength) 500 mg PO Q4H PRN PRN Reason: Pain Acetaminophen (Tylenol Extra Strength) 1,000 mg PO Q4H PRN PRN Reason: Pain Benzocaine/Menthol (Dermoplast Pain Relief 20%-0.5% [place]) 78 gm TOP ASDIRECTED PRN PRN Reason: Perineal Comfort Measure Bisacodyl (Dulcolax) 10 mg RECTAL ONETIME PRN PRN Reason: Constipation Docusate Sodium (Colace) 100 mg PO BID PRN PRN Reason: Constipation Emollient Ointment (Lansinoh Hpa) 0 gm TOP ASDIRECTED PRN PRN Reason: Sore Nipples Ibuprofen (Motrin) 400 mg PO Q4H PRN PRN Reason: Pain Ibuprofen (Motrin) 800 mg PO Q6H PRN PRN Reason: Pain Methylergonovine Maleate (Methergine) 0.2 mg IM ONETIME PRN PRN Reason: Excessive Vaginal Bleeding Oxycodone HCl (Oxycodone) 5 mg PO Q2H PRN PRN Reason: Pain Witch Belkis (Tucks) 1 pad TOP ASDIRECTED PRN PRN Reason: comfort care Discontinued Medications Butorphanol Tartrate (Stadol) 1 mg IVPUSH ASDIRECTED PRN PRN Reason: Pain Carboprost Tromethamine (Hemabate Ds) 250 mcg IM ASDIRECTED PRN PRN Reason: Post Hemorrhage Fentanyl (Sublimaze) Confirm Administered Dose 100 mcg .ROUTE .STK-MED ONE Stop: 04/26/19 08:55 Lactated Ringer's (Ringers, Lactated) 1,000 mls @ 150 mls/hr IV ASDIRECTED [facility] Last Admin: 04/26/19 08:45 Dose: 125 mls/hr Oxytocin/Sodium Chloride (Oxytocin 30 Unit/500 Ml-Ns) 30 unit in 500 mls @ 999 mls/hr IV TITRATE [facility] Oxytocin/Sodium Chloride (Oxytocin 30 Unit/500 Ml-Ns) 30 unit in 500 mls @ 2 mls/hr IV TITRATE [facility]; Protocol Last Titration: 04/26/19 09:15 Dose: 8 munits/min, 8 mls/hr Tranexamic Acid 1,000 mg/ (Sodium Chloride) 110 mls @ 660 mls/hr IV ONETIME PRN PRN Reason: Bleeding Fentanyl/Bupivacaine HCl (Lckmuhnr-Buncx-Tb 2 Mcg/Ml-0.125%) Confirm Administered Dose 100 mls @ as directed .ROUTE .STK-MED ONE Stop: 04/26/19 08:56 Lidocaine HCl (Xylocaine 1%) 50 ml INJECT ONETIME PRN PRN Reason: Laceration repair Methylergonovine Maleate (Methergine) 0.2 mg IM ASDIRECTED PRN PRN Reason: Post Hemorrhage Misoprostol (Cytotec) 200 mcg PO ONETIME PRN PRN Reason: Post Hemorrhage Misoprostol (Cytotec) 25 mcg VAG ONETIME PRN PRN Reason: Cervical Ripening Last Admin: 04/26/19 01:23 Dose: 25 mcg Misoprostol (Cytotec) 25 mcg VAG Q4H PRN PRN Reason: Cervical Ripening Nalbuphine HCl (Nubain) 10 mg IVPUSH ASDIRECTED PRN PRN Reason: Pain (severe 7-10) Ondansetron HCl (Zofran) 4 mg IVPUSH Q6H PRN PRN Reason: Nausea/Vomiting Sodium Chloride (Saline Flush) 10 ml FLUSH ASDIRECTED PRN PRN Reason: Keep Vein Open Sodium Chloride (Normal Saline) 10 ml IV ASDIRECTED PRN PRN Reason: IV Use Sterile Water (Sterile Water For Irrigation) 1,000 ml IRR ASDIRECTED PRN PRN Reason: delivery Terbutaline Sulfate (Brethine) 0.25 mg SUBCUT ASDIRECTED PRN PRN Reason: Tacysystole
[2019-04-26] MEDS: Ibuprofen 800 MG Tab PO PRN (16:56)
[2019-04-27 07:35] VITALS: BP 114/73; PULSE 80
[2019-04-27] MEDS: Ibuprofen 800 MG Tab PO PRN (07:35)
--- NOTE | 2019-04-27 08:42 | PCM.PNPP ---
<GerardWhitLynda E - Last Filed: 04/27/19 08:50> - General Info Date of Service: 04/27/19 Admission Dx/Problem (Free Text): Uncomplicated Subjective Update: Kristal is doing well this AM. She reports some cramping when baby Sade is , but otherwise is urinating, eating, and ambulating well. Pt is ready and excited to go home today Functional Status: Reports: Tolerating Diet, Ambulating, Urinating, Other (Pt would like to have better pain control--has cramping when ) - Review of Systems General: Denies: Fever, Weakness, Chills HEENT: Denies: Headaches, Visual Changes Pulmonary: Denies: Shortness of Breath Cardiovascular: Denies: Chest Pain Gastrointestinal: Reports: Abdominal Pain (with uterine palpation) Genitourinary: Denies: Dysuria Neurological: Reports: No Symptoms. Denies: Headache Psychiatric: Reports: No Symptoms - General Info Date of Service: 04/27/19 - Patient Data Vital Signs - Most Recent: Last Vital Signs Temp 36.5 C 04/27/19 07:34 Pulse 80 04/27/19 07:34 Resp 20 04/27/19 07:34 BP 114/73 04/27/19 07:34 Pulse Ox 96 04/27/19 07:34 Weight - Most Recent: 108.862 kg Lab Results - Last 24 Hours: Laboratory Results - last 24 hr 04/26/19 04/27/19 Range/Units 10:33 06:50 Hgb 11.8 L (12.0-16.0) g/dL Hct 35.1 L (36.0-46.0) % Cord ABG pH 7.212 (7.18-7.38) Cord ABG Base Excess -7 (-10--2) Cord VBG pH 7.358 (7.25-7.45) Cord VBG Base Excess -5 (-10--2) Med Orders - Current: Current Medications Acetaminophen (Tylenol Extra Strength) 500 mg PO Q4H PRN PRN Reason: Pain Acetaminophen (Tylenol Extra Strength) 1,000 mg PO Q4H PRN PRN Reason: Pain Last Admin: 04/27/19 00:09 Dose: 1,000 mg Benzocaine/Menthol (Dermoplast Pain Relief 20%-0.5% [place]) 78 gm TOP ASDIRECTED PRN PRN Reason: Perineal Comfort Measure Bisacodyl (Dulcolax) 10 mg RECTAL ONETIME PRN PRN Reason: Constipation Docusate Sodium (Colace) 100 mg PO BID PRN PRN Reason: Constipation Last Admin: 04/26/19 21:06 Dose: 100 mg Emollient Ointment (Lansinoh Hpa) 0 gm TOP ASDIRECTED PRN PRN Reason: Sore Nipples Ibuprofen (Motrin) 400 mg PO Q4H PRN PRN Reason: Pain Ibuprofen (Motrin) 800 mg PO Q6H PRN PRN Reason: Pain Last Admin: 04/27/19 07:35 Dose: 800 mg Methylergonovine Maleate (Methergine) 0.2 mg IM ONETIME PRN PRN Reason: Excessive Vaginal Bleeding Oxycodone HCl (Oxycodone) 5 mg PO Q2H PRN PRN Reason: Pain Witch Belkis (Tucks) 1 pad TOP ASDIRECTED PRN PRN Reason: comfort care Discontinued Medications Butorphanol Tartrate (Stadol) 1 mg IVPUSH ASDIRECTED PRN PRN Reason: Pain Carboprost Tromethamine (Hemabate Ds) 250 mcg IM ASDIRECTED PRN PRN Reason: Post Hemorrhage Fentanyl (Sublimaze) Confirm Administered Dose 100 mcg .ROUTE .STK-MED ONE Stop: 04/26/19 08:55 Last Admin: 04/26/19 17:38 Dose: Not Given Lactated Ringer's (Ringers, Lactated) 1,000 mls @ 150 mls/hr IV ASDIRECTED PAOLO Last Admin: 04/26/19 08:45 Dose: 125 mls/hr Oxytocin/Sodium Chloride (Oxytocin 30 Unit/500 Ml-Ns) 30 unit in 500 mls @ 999 mls/hr IV TITRATE PAOLO Oxytocin/Sodium Chloride (Oxytocin 30 Unit/500 Ml-Ns) 30 unit in 500 mls @ 2 mls/hr IV TITRATE PAOLO; Protocol Last Titration: 04/26/19 09:15 Dose: 8 munits/min, 8 mls/hr Tranexamic Acid 1,000 mg/ (Sodium Chloride) 110 mls @ 660 mls/hr IV ONETIME PRN PRN Reason: Bleeding Fentanyl/Bupivacaine HCl (Crghyrei-Dwhlq-Lc 2 Mcg/Ml-0.125%) Confirm Administered Dose 100 mls @ as directed .ROUTE .STK-MED ONE Stop: 04/26/19 08:56 Last Admin: 04/26/19 17:39 Dose: Not Given Lidocaine HCl (Xylocaine 1%) 50 ml INJECT ONETIME PRN PRN Reason: Laceration repair Methylergonovine Maleate (Methergine) 0.2 mg IM ASDIRECTED PRN PRN Reason: Post Hemorrhage Misoprostol (Cytotec) 200 mcg PO ONETIME PRN PRN Reason: Post Hemorrhage Misoprostol (Cytotec) 25 mcg VAG ONETIME PRN PRN Reason: Cervical Ripening Last Admin: 04/26/19 01:23 Dose: 25 mcg Misoprostol (Cytotec) 25 mcg VAG Q4H PRN PRN Reason: Cervical Ripening Nalbuphine HCl (Nubain) 10 mg IVPUSH ASDIRECTED PRN PRN Reason: Pain (severe 7-10) Ondansetron HCl (Zofran) 4 mg IVPUSH Q6H PRN PRN Reason: Nausea/Vomiting Sodium Chloride (Saline Flush) 10 ml FLUSH ASDIRECTED PRN PRN Reason: Keep Vein Open Sodium Chloride (Normal Saline) 10 ml IV ASDIRECTED PRN PRN Reason: IV Use Sterile Water (Sterile Water For Irrigation) 1,000 ml IRR ASDIRECTED PRN PRN Reason: delivery Terbutaline Sulfate (Brethine) 0.25 mg SUBCUT ASDIRECTED PRN PRN Reason: Tacysystole - Interaction Infant Disposition, : in Room with Family Infant Interaction: Holding Infant Feeding: Breastfed ; Nursed Well, Continues to Breastfeed Support Person: Significant Other - Recovery Exam Fundal Tone: Firm Fundal Level: At Umbilicus Fundal Placement: Midline Lochia Amount: Scant Lochia Color: Rubra/Red Perineum Description: Intact, Minimal Bruising/Swelling Episiotomy/Laceration: Approximated Bladder Status: Voiding Urinary Elimination: Voided - Exam General: Alert, Oriented Lungs: Clear to Auscultation, Normal Respiratory Effort Cardiovascular: Regular Rate, Regular Rhythm GI/Abdominal Exam: Normal Bowel Sounds, Soft Skin: Warm, Dry, Intact Neurological: No New Focal Deficit Psy/Mental Status: Alert, Normal Affect - Problem List & Annotations (1) Vaginal delivery SNOMED Code(s): 683016821 Code(s): O80 - ENCOUNTER FOR FULL-TERM UNCOMPLICATED DELIVERY Status: Resolved Current Visit: Yes - Problem List Review Problem List Initiated/Reviewed/Updated: Yes - Assessment Assessment:: Kristal is a 29 yo G2 now P2002 s/p induction of an uncomplicated vaginal delivery at 40 weeks PPD #1. PNC complicated by LGA fetus - Plan Plan:: Continue routine post- care to include monitoring vital signs and lochia. Treat pain PRN with Tylenol and motrin as ordered. Encourage hydration, mother- bonding, and ambulation. Patient may eat a regular diet as tolerated. Pelvic rest for 6 weeks. Discharge today. Follow up in 6 weeks or sooner if needed <Trisha Chambers - Last Filed: 04/27/19 08:52> - Patient Data Vital Signs - Most Recent: Last Vital Signs Temp 36.5 C 04/27/19 07:34 Pulse 80 04/27/19 07:34 Resp 20 04/27/19 07:34 BP 114/73 04/27/19 07:34 Pulse Ox 96 04/27/19 07:34 Lab Results - Last 24 Hours: Laboratory Results - last 24 hr 04/26/19 04/27/19 Range/Units 10:33 06:50 Hgb 11.8 L (12.0-16.0) g/dL Hct 35.1 L (36.0-46.0) % Cord ABG pH 7.212 (7.18-7.38) Cord ABG Base Excess -7 (-10--2) Cord VBG pH 7.358 (7.25-7.45) Cord VBG Base Excess -5 (-10--2) Med Orders - Current: Current Medications Acetaminophen (Tylenol Extra Strength) 500 mg PO Q4H PRN PRN Reason: Pain Acetaminophen (Tylenol Extra Strength) 1,000 mg PO Q4H PRN PRN Reason: Pain Last Admin: 04/27/19 00:09 Dose: 1,000 mg Benzocaine/Menthol (Dermoplast Pain Relief 20%-0.5% [place]) 78 gm TOP ASDIRECTED PRN PRN Reason: Perineal Comfort Measure Bisacodyl (Dulcolax) 10 mg RECTAL ONETIME PRN PRN Reason: Constipation Docusate Sodium (Colace) 100 mg PO BID PRN PRN Reason: Constipation Last Admin: 04/26/19 21:06 Dose: 100 mg Emollient Ointment (Lansinoh Hpa) 0 gm TOP ASDIRECTED PRN PRN Reason: Sore Nipples Ibuprofen (Motrin) 400 mg PO Q4H PRN PRN Reason: Pain Ibuprofen (Motrin) 800 mg PO Q6H PRN PRN Reason: Pain Last Admin: 04/27/19 07:35 Dose: 800 mg Methylergonovine Maleate (Methergine) 0.2 mg IM ONETIME PRN PRN Reason: Excessive Vaginal Bleeding Oxycodone HCl (Oxycodone) 5 mg PO Q2H PRN PRN Reason: Pain Witch Belkis (Tucks) 1 pad TOP ASDIRECTED PRN PRN Reason: comfort care Discontinued Medications Butorphanol Tartrate (Stadol) 1 mg IVPUSH ASDIRECTED PRN PRN Reason: Pain Carboprost Tromethamine (Hemabate Ds) 250 mcg IM ASDIRECTED PRN PRN Reason: Post Hemorrhage Fentanyl (Sublimaze) Confirm Administered Dose 100 mcg .ROUTE .STK-MED ONE Stop: 04/26/19 08:55 Last Admin: 04/26/19 17:38 Dose: Not Given Lactated Ringer's (Ringers, Lactated) 1,000 mls @ 150 mls/hr IV ASDIRECTED PAOLO Last Admin: 04/26/19 08:45 Dose: 125 mls/hr Oxytocin/Sodium Chloride (Oxytocin 30 Unit/500 Ml-Ns) 30 unit in 500 mls @ 999 mls/hr IV TITRATE PAOLO Oxytocin/Sodium Chloride (Oxytocin 30 Unit/500 Ml-Ns) 30 unit in 500 mls @ 2 mls/hr IV TITRATE PAOLO; Protocol Last Titration: 04/26/19 09:15 Dose: 8 munits/min, 8 mls/hr Tranexamic Acid 1,000 mg/ (Sodium Chloride) 110 mls @ 660 mls/hr IV ONETIME PRN PRN Reason: Bleeding Fentanyl/Bupivacaine HCl (Biaeyumt-Comtk-Tg 2 Mcg/Ml-0.125%) Confirm Administered Dose 100 mls @ as directed .ROUTE .STK-MED ONE Stop: 04/26/19 08:56 Last Admin: 04/26/19 17:39 Dose: Not Given Lidocaine HCl (Xylocaine 1%) 50 ml INJECT ONETIME PRN PRN Reason: Laceration repair Methylergonovine Maleate (Methergine) 0.2 mg IM ASDIRECTED PRN PRN Reason: Post Hemorrhage Misoprostol (Cytotec) 200 mcg PO ONETIME PRN PRN Reason: Post Hemorrhage Misoprostol (Cytotec) 25 mcg VAG ONETIME PRN PRN Reason: Cervical Ripening Last Admin: 04/26/19 01:23 Dose: 25 mcg Misoprostol (Cytotec) 25 mcg VAG Q4H PRN PRN Reason: Cervical Ripening Nalbuphine HCl (Nubain) 10 mg IVPUSH ASDIRECTED PRN PRN Reason: Pain (severe 7-10) Ondansetron HCl (Zofran) 4 mg IVPUSH Q6H PRN PRN Reason: Nausea/Vomiting Sodium Chloride (Saline Flush) 10 ml FLUSH ASDIRECTED PRN PRN Reason: Keep Vein Open Sodium Chloride (Normal Saline) 10 ml IV ASDIRECTED PRN PRN Reason: IV Use Sterile Water (Sterile Water For Irrigation) 1,000 ml IRR ASDIRECTED PRN PRN Reason: delivery Terbutaline Sulfate (Brethine) 0.25 mg SUBCUT ASDIRECTED PRN PRN Reason: Tacysystole - Problem List Review Problem List Initiated/Reviewed/Updated: Yes - My Orders Last 24 Hours: My Active Orders 04/26/19 10:52 Acetaminophen [Tylenol Extra Strength] 1,000 mg PO Q4H PRN Acetaminophen [Tylenol Extra Strength] 500 mg PO Q4H PRN Benzocaine/Menthol [Dermoplast Pain Relief 20%-0.5% [place]] 78 gm TOP ASDIRECTED PRN Bisacodyl [Dulcolax] 10 mg RECTAL ONETIME PRN Docusate Sodium [Colace] 100 mg PO BID PRN Ibuprofen [Motrin] 400 mg PO Q4H PRN Ibuprofen [Motrin] 800 mg PO Q6H PRN Lanolin [Lansinoh HPA] See Dose Instructions TOP ASDIRECTED PRN Methylergonovine [Methergine] 0.2 mg IM ONETIME PRN Witch Belkis [Tucks] 1 pad TOP ASDIRECTED PRN oxyCODONE 5 mg PO Q2H PRN Resuscitation Status Routine 04/26/19 10:53 Patient Status [ADT] Routine May Shower [RC] ASDIRECTED Up ad Leda [RC] ASDIRECTED Vital Signs [RC] PER UNIT ROUTINE Assess Lochia [WOMSER] Per Unit Routine Assess Uterine Involution [WOMSER] Per Unit Routine Perineal Care [OM.PC] Per Unit Routine Peripheral IV Discontinue [OM.PC] Routine 04/26/19 Lunch Regular Diet [DIET] - Assessment Assessment:: patient was seen and examined by me and I agree with above.
== END 2019-04-27 12:50 | disposition home or self-care (01) | DRG 807 ==
LOC: MW.OB 00:05 → OBSVTOIN 10:53 → MW.OB 15:09
PROVIDERS: ADMIT Obstetrics & Gynecology; ATTEND Obstetrics & Gynecology
PROC: 10E0XZZ Delivery of Products of Conception, External Approach (ICD-10-PCS; principal; 2019-04-26)
PROC: 10907ZC Drainage of Amniotic Fluid, Therapeutic from Products of Conception, Via Natural or Artificial Opening (ICD-10-PCS; 2019-04-26)
PROC: 3E0P7VZ Introduction of Hormone into Female Reproductive, Via Natural or Artificial Opening (ICD-10-PCS; 2019-04-26)
PROC: 3E033VJ Introduction of Other Hormone into Peripheral Vein, Percutaneous Approach (ICD-10-PCS; 2019-04-26)
DX: O99.214 Obesity complicating childbirth (principal); Z37.0 Single live birth; E66.9 Obesity, unspecified; O66.0 Obstructed labor due to shoulder dystocia; Z3A.40 40 weeks gestation of pregnancy; Z88.0 Allergy status to penicillin
CPT/HCPCS: 36415; 51702; 59025; 59409; 82803; 85014; 85018; 85027; 86850; 86900; 86901; A9270-GY; J2590; J7120